=== PATIENT | female | born 1980 | race Caucasian/White ===

== ENCOUNTER 2017-04-13 11:41 | Inpatient (IN) | payer BC ==
[~2017-04-13] VITALS: Ht 167.6 cm; Wt 69.9 kg
[2017-04-13] MEDS ORDERED: TRAZODONE HCL150 MG ORAL (11:54)
[2017-04-13] MEDS ORDERED: Trintellix (11:54)
[2017-04-13] MEDS ORDERED: SINGULAIR10 MG ORAL (11:54)
[2017-04-13 12:44] VITALS: BP 119/80
[2017-04-13] MEDS ORDERED: Pseudoephedrine 30mg tab ORAL ONE (13:45)
[2017-04-13 13:47] LABS: BASOPHILS % (AUTO) 1.2 % (0.0-2.0); EOSINOPHILS % (AUTO) 0.8 % (0.0-3.0); MEAN CORPUSCULAR HEMOGLOBIN 29.5 PG (27.0-31.0); MEAN CORPUSCULAR HGB CONC 32.2 G/DL (32.0-36.0); MEAN CORPUSCULAR VOLUME 91 FL (80-99); MEAN PLATELET VOLUME 6.1 FL (6.5-10.1); MONOCYTES % (AUTO) 8.1 % (1.0-10.0); NEUTROPHILS % (AUTO) 66.9 % (45.0-75.0); PLATELET COUNT 313 K/UL (150-450); RED BLOOD COUNT 5.11 M/UL (4.20-5.40); RED CELL DISTRIBUTION WIDTH 12.9 % (11.6-14.8); WHITE BLOOD COUNT 11.1 K/UL (4.8-10.8)
[2017-04-13 13:56] LABS: PROTHROMBIN TIME 10.3 SEC (9.30-11.50)
[2017-04-13] MEDS ORDERED: Morphine Sulfate 4mg/ml Inj IVP PRN ×2 (14:00→15:00)
[2017-04-13] MEDS ORDERED: ceFAZolin 1gm/50ml Premix 50 ML IVPB SCH (14:00)
[2017-04-13 14:08] LABS: ALANINE AMINOTRANSFERASE 22 U/L (3-33); ALBUMIN/GLOBULIN RATIO 1.4 (1.0-2.7); ANION GAP 15 (5-15); ASPARTATE AMINO TRANSFERASE 15 U/L (5-40); CALCIUM 9.6 mg/dL (8.6-10.2); CARBON DIOXIDE 24 mEQ/L (20-30); CHLORIDE 103 mEQ/L (98-107); CREATININE 0.8 mg/dL (0.5-0.9); GLOMERULAR FILTRATION RATE > 60 mL/min (>60); HEMOLYSIS 49; POTASSIUM 3.8 mEQ/L (3.4-4.9); SODIUM 142 mEQ/L (135-145); TOTAL PROTEIN 7.7 g/dL (6.6-8.7)
--- NOTE | 2017-04-13 14:22 | Emergency Room Report ---
History of Present Illness General Chief Complaint: Skin Rash/Abscess Source: Patient (Ashley Oscar) Present Illness HPI 36 YO Female presents to the ED c/o pain, swelling, and erythema of the groin area with multiple abscesses noted. bilaterally total of 4 and one on the posterior right thigh. Denies N/V/F/C, denies rashes or lesions elsewhere, denies pmhx. Denies CP, Palpitations, LOC, AMS, dizziness, Changes in Vision, Sensation, paresthesias, or a sudden severe headache. (Ashley Oscar) Allergies: Coded Allergies: RAGWEED POLLEN (Verified Allergy, Unknown, 04/13/17) Patient History Past Medical History: see triage record Past Surgical History: none Pertinent Family History: none Last Menstrual Period: Six months ago "Maria Isabel IUD" Now: No Reviewed Nursing Documentation: PSxH: Agreed (Ashley Oscar) Nursing Documentation-PMH Past Medical History: No Stated History History Of Psychiatric Problem: Yes - depression (one year) (Ashley Oscar) Review of Systems All Other Systems: negative except mentioned in HPI (Ashley Oscar) Physical Exam Vital Signs Date Time Temp Pulse Resp B/P Pulse Ox O2 Delivery O2 Flow Rate FiO2 04/13/17 11:47 98.1 97 16 119/80 95 Room Air Sp02 EP Interpretation: reviewed, normal General Appearance: no apparent distress, alert, GCS 15, non-toxic Head: normocephalic, atraumatic Eyes: bilateral eye PERRL, bilateral eye normal inspection ENT: hearing grossly normal, normal pharynx, no angioedema, normal voice Neck: full range of motion, supple/symm/no masses Respiratory: lungs clear, normal breath sounds, speaking full sentences Cardiovascular #1: regular rate, rhythm, no edema Rectal: deferred Musculoskeletal: back normal, gait/station normal, normal range of motion, non- tender Neurologic: alert, oriented x3, responsive, motor strength/tone normal, sensory intact, speech normal Psychiatric: judgement/insight normal, memory normal, mood/affect normal Skin: normal color, no rash, warm/dry, well hydrated, other - localized hydradenitis Suppurativa requiring direct admission for surgical or IV abx management. Lymphatic: no adenopathy (Ashley Oscar) Medical Decision Making PA Attestation Dr. Barreto is my supervising Physician whom patient management has been discussed with. (Ashley Oscar) Diagnostic Impression: Primary Impression: Hidradenitis suppurativa ER Course Pt. presents to the ED c/o pain, swelling, and erythema of the groin area with multiple abscesses noted. bilaterally total of 4 and one on the posterior right thigh. Denies N/V/F/C, Ddx considered but are not limited to cellulitis, hydradenitis Suppurativa, fracture, d/L, gout, abscess Vital signs: are WNL, pt. is afebrile H&PE are most consistent with localized hydradenitis Suppurativa requiring direct admission for surgical or IV abx management. ORDERS: -Gen. preop lab work: CBC, CMP, PT/PTT: unremarkable other than mildly elevated WBC's of 11.1 - UA: Unremarkable - Urine HCG: Negative ED INTERVENTIONS: -1 gram Ancef. DISPOSITION: at this time pt. will be admitted to Dr. Cortez for hydradenitis Suppurativa. Dr. Cortez agreed to admit the pt. and to continue pt. care management. Labs Test 04/13/17 13:00 04/13/17 14:00 04/13/17 14:50 White Blood Count 11.1 K/UL (4.8-10.8) Red Blood Count 5.11 M/UL (4.20-5.40) Hemoglobin 15.1 G/DL (12.0-16.0) Hematocrit 46.8 % (37.0-47.0) Mean Corpuscular Volume 91 FL (80-99) Mean Corpuscular Hemoglobin 29.5 PG (27.0-31.0) Mean Corpuscular Hemoglobin Concent 32.2 G/DL (32.0-36.0) Red Cell Distribution Width 12.9 % (11.6-14.8) Platelet Count 313 K/UL (150-450) Mean Platelet Volume 6.1 FL (6.5-10.1) Neutrophils (%) (Auto) 66.9 % (45.0-75.0) Lymphocytes (%) (Auto) 23.0 % (20.0-45.0) Monocytes (%) (Auto) 8.1 % (1.0-10.0) Eosinophils (%) (Auto) 0.8 % (0.0-3.0) Basophils (%) (Auto) 1.2 % (0.0-2.0) Prothrombin Time 10.3 SEC (9.30-11.50) Prothromb Time International Ratio 1.0 (0.9-1.1) Activated Partial Thromboplast Time 24 SEC (23-33) Sodium Level 142 mEQ/L (135-145) Potassium Level 3.8 mEQ/L (3.4-4.9) Chloride Level 103 mEQ/L (98-107) Carbon Dioxide Level 24 mEQ/L (20-30) Anion Gap 15 (5-15) Blood Urea Nitrogen 13 mg/dL (7-23) Creatinine 0.8 mg/dL (0.5-0.9) Estimat Glomerular Filtration Rate > 60 mL/min (>60) Glucose Level 100 mg/dL (74-106) Calcium Level 9.6 mg/dL (8.6-10.2) Total Bilirubin 1.9 mg/dL (0.0-1.2) Direct Bilirubin 0.2 mg/dL (0.1-0.3) Aspartate Amino Transf (AST/SGOT) 15 U/L (5-40) Alanine Aminotransferase (ALT/SGPT) 22 U/L (3-33) Alkaline Phosphatase 76 U/L (35-104) Total Protein 7.7 g/dL (6.6-8.7) Albumin 4.5 g/dL (3.5-5.2) Globulin 3.2 g/dL Albumin/Globulin Ratio 1.4 (1.0-2.7) Lactic Acid Level 1.30 mmol/L (0.66-2.22) Urine Color Yellow Urine Appearance Clear Urine pH 5 (4.5-8.0) Urine Specific [place] 1.020 (1.005-1.035) Urine Protein Negative (NEGATIVE) Urine Glucose (UA) Negative (NEGATIVE) Urine Ketones 2+ (NEGATIVE) Urine Occult Blood Negative (NEGATIVE) Urine Nitrite Negative (NEGATIVE) Urine Bilirubin Negative (NEGATIVE) Urine Urobilinogen Normal MG/DL (0.0-1.0) Urine Leukocyte Esterase 1+ (NEGATIVE) Urine RBC 0-2 /HPF (0 - 2) Urine WBC 2-4 /HPF (0 - 2) Urine Squamous Epithelial Cells Few /LPF (NONE/OCC) Urine Bacteria Few /HPF (NONE) Urine HCG, Qualitative Negative (Ashley Oscar) ER Course I agree with the above assessment. Patient will be admitted. (Martínez Barreto M.D.) Last Vital Signs Date Time Temp Pulse Resp B/P Pulse Ox O2 Delivery O2 Flow Rate FiO2 04/13/17 12:44 98.1 97 16 119/80 95 Room Air (Ashley Oscar) Disposition: ADMITTED INPATIENT Condition: Serious Referrals: NOT CHOSEN IPA/,REFERRING (PCP) Ashley Oscar Apr 13, 2017 14:22 Martínez Barreto M.D. Apr 16, 2017 08:01
[2017-04-13 14:26] LABS: BILIRUBIN,DIRECT 0.2 mg/dL (0.1-0.3)
[2017-04-13 14:30] VITALS: BP 120/74
[2017-04-13] MEDS ORDERED: Milk of Magnesia 30ml Ud ORAL PRN (15:00)
[2017-04-13] MEDS ORDERED: Morphine Sulfate 2mg/ml Inj IVP PRN (15:00)
[2017-04-13] MEDS ORDERED: Miralax 17gm pkt ORAL PRN (15:00)
[2017-04-13] MEDS ORDERED: Mylanta II UD 30ml ORAL PRN (15:00)
--- NOTE | 2017-04-13 15:03 | History and Physical ---
History of Present Illness General Date patient seen: Apr 13, 2017 Time patient seen: 14:54 Reason for Hospitalization: Skin Rash/Abscess Present Illness HPI 36 y/o female with hx of hidradenitis suppurative in the groin area. Pt has had multiple surgeries before but has not had surgery for her hidradenitis. She states she gets "flares" of her hidradenitis every 2-3 months. She states she is overall doing "better" however lesions will not go away and outpt therapy has not been successful in treating the lesions. Denies any fevers/chills. She states she has occasional pain, redness, swelling in the region. pt was seen by a surgeon in the office, and sent to the ED to be evaluated for possible admission for an abscess. Allergies: Coded Allergies: RAGWEED POLLEN (Verified Allergy, Unknown, 04/13/17) Medication History Scheduled Montelukast Sodium* (Singulair*), 10 MG ORAL DAILY, (Reported) Trazodone* (Trazodone*), 50 MG ORAL BEDTIME, (Reported) Miscellaneous Medications [Trintellix], (Reported) Patient History History Provided By: Patient Healthcare decision maker Resuscitation status Full Code Advanced Directive on File Past Medical/Surgical History Past Medical/Surgical History: (1) Hidradenitis suppurativa Family History Family History: Patient reports no known family medical history. Social History Social History: (1) No significant social history Review of Systems ROS Narrative CONSTITUTIONAL: No weight loss, fever, chills, weakness or fatigue. HEENT: Eyes: No visual loss, blurred vision, double vision or yellow sclerae. Ears, Nose, Throat: No hearing loss, sneezing, congestion, runny nose or sore throat. SKIN: No rash or itching. CARDIOVASCULAR: No chest pain, chest pressure or chest discomfort. No palpitations or edema. RESPIRATORY: No shortness of breath, cough or sputum. GASTROINTESTINAL: No anorexia, nausea, vomiting or diarrhea. No abdominal pain or blood. NEUROLOGICAL: No headache, dizziness, syncope, paralysis, ataxia, numbness or tingling in the extremities. No change in bowel or bladder control. MUSCULOSKELETAL: No muscle, back pain, joint pain or stiffness. HEMATOLOGIC: No anemia, bleeding or bruising. LYMPHATICS: No enlarged nodes. No history of splenectomy. PSYCHIATRIC: No history of depression or anxiety. ENDOCRINOLOGIC: No reports of sweating, cold or heat intolerance. No polyuria or polydipsia. ALLERGIES: No history of asthma, hives, eczema or rhinitis. Physical Exam Physical Exam Narrative General: alert, cooperative, no distress, appears stated age Head: normocephalic, without obvious abnormality, atraumatic Eyes: conjunctivae/corneas clear. PERRL, EOM's intact Throat: lips, mucosa, and tongue normal. MMM Neck: supple, symmetrical, trachea midline, and no JVD Lungs: clear to auscultation bilaterally Heart: regular rate and rhythm, S1, S2 normal, no murmur, click, rub or gallop Abdomen: soft, non-tender, non-distended, bowel sounds normal; no masses or organomegaly Extremities: multiple erythematous lesions around perineal area, +redness, mild tenderness, +rubor, no fluctuance, no induration Pulses: 2+ and symmetric Skin: skin color, texture, turgor normal; no rashes or lesions Neurologic: grossly normal, no focal deficits Last 24 Hour Vital Signs Date Time Temp Pulse Resp B/P Pulse Ox O2 Delivery O2 Flow Rate FiO2 04/13/17 12:44 98.1 97 16 119/80 95 Room Air 04/13/17 11:47 98.1 97 16 119/80 95 Room Air Laboratory Tests Test 04/13/17 13:00 04/13/17 14:00 White Blood Count 11.1 K/UL (4.8-10.8) H Red Blood Count 5.11 M/UL (4.20-5.40) Hemoglobin 15.1 G/DL (12.0-16.0) Hematocrit 46.8 % (37.0-47.0) Mean Corpuscular Volume 91 FL (80-99) Mean Corpuscular Hemoglobin 29.5 PG (27.0-31.0) Mean Corpuscular Hemoglobin Concent 32.2 G/DL (32.0-36.0) Red Cell Distribution Width 12.9 % (11.6-14.8) Platelet Count 313 K/UL (150-450) Mean Platelet Volume 6.1 FL (6.5-10.1) L Neutrophils (%) (Auto) 66.9 % (45.0-75.0) Lymphocytes (%) (Auto) 23.0 % (20.0-45.0) Monocytes (%) (Auto) 8.1 % (1.0-10.0) Eosinophils (%) (Auto) 0.8 % (0.0-3.0) Basophils (%) (Auto) 1.2 % (0.0-2.0) Prothrombin Time 10.3 SEC (9.30-11.50) Prothromb Time International Ratio 1.0 (0.9-1.1) Activated Partial Thromboplast Time 24 SEC (23-33) Sodium Level 142 mEQ/L (135-145) Potassium Level 3.8 mEQ/L (3.4-4.9) Chloride Level 103 mEQ/L (98-107) Carbon Dioxide Level 24 mEQ/L (20-30) Anion Gap 15 (5-15) Blood Urea Nitrogen 13 mg/dL (7-23) Creatinine 0.8 mg/dL (0.5-0.9) Estimat Glomerular Filtration Rate > 60 mL/min (>60) Glucose Level 100 mg/dL (74-106) Calcium Level 9.6 mg/dL (8.6-10.2) Total Bilirubin 1.9 mg/dL (0.0-1.2) H Direct Bilirubin 0.2 mg/dL (0.1-0.3) Aspartate Amino Transf (AST/SGOT) 15 U/L (5-40) Alanine Aminotransferase (ALT/SGPT) 22 U/L (3-33) Alkaline Phosphatase 76 U/L (35-104) Total Protein 7.7 g/dL (6.6-8.7) Albumin 4.5 g/dL (3.5-5.2) Globulin 3.2 g/dL Albumin/Globulin Ratio 1.4 (1.0-2.7) Lactic Acid Level 1.30 mmol/L (0.66-2.22) Height (Feet): 5 Height (Inches): 7.00 Weight (Pounds): 150 Medications Current Medications Medications (Trade) Dose Ordered Sig/Momo Route PRN Reason Start Time Stop Time Status Last Admin Dose Admin Acetaminophen (Tylenol) 650 mg Q4H PRN ORAL Mild Pain (Pain Scale 1-3) 04/13/17 14:00 05/13/17 13:59 UNV Cefazolin Sodium (Ancef 1gm/50ml premix) 50 ml @ 100 mls/hr Q8HR IVPB 04/13/17 14:00 04/20/17 13:59 UNV Dextrose STAT PRN IV Hypoglycemia 04/13/17 14:00 05/13/17 13:59 UNV Heparin Sodium (Porcine) (Heparin 5000 units/ml) 5,000 units EVERY 12 HOURS SUBQ 04/14/17 09:00 05/14/17 08:59 UNV Morphine Sulfate (Morphine Sulfate) 4 mg Q6HR PRN IVP Severe Pain (Pain Scale 7-10) 04/13/17 14:00 04/20/17 13:59 UNV Ondansetron HCl (Zofran) 4 mg Q6H PRN IVP Nausea & Vomiting 04/13/17 14:00 05/13/17 13:59 UNV Sodium Chloride (Sodium Chloride 1000ml bag) 1,000 ml @ 100 mls/hr Q10H IVLG 04/13/17 14:59 05/13/17 14:58 UNV Assessment/Plan Problem List: (1) Perineal abscess Assessment & Plan: Admit to inpatient, r/o [place] perineal abscess IV abx Wound care Supp care Pain control f/u cultures Surgical consultation ICD Codes: L02.215 - Cutaneous abscess of perineum SNOMED: [id number] TIM RICKS Apr 13, 2017 15:03
[2017-04-13 15:46] LABS: APPEARANCE,URINE CLEAR; KETONES,URINE 2+ (NEGATIVE); LEUKOCYTE ESTERASE ,URINE 1+ (NEGATIVE); NITRITE,URINE NEGATIVE (NEGATIVE); PH,URINE 5 (4.5-8.0); PROTEIN,URINE NEGATIVE (NEGATIVE); UROBILINOGEN,URINE NORMAL MG/DL (0.0-1.0)
[2017-04-13 16:03] LABS: BACTERIA,URINE FEW /HPF; RBC,URINE 0-2 /HPF (0 - 2); SQUAMOUS EPITHELIAL CELL,UR FEW /LPF (NONE/OCC)
[2017-04-13 16:13] VITALS: BP 110/65
[2017-04-13] MEDS: D5NS 1,000 ML IV SCH (16:13)
[2017-04-13] MEDS: Montelukast 10mg tablet ORAL SCH (16:51)
[2017-04-13 20:00] VITALS: BP 109/67
[2017-04-13] MEDS: ceFAZolin 1gm in D5W 55ml IVP SCH (21:27)
[2017-04-13] MEDS: Docusate 100mg cap ORAL SCH (21:27)
[2017-04-13] MEDS: TraZODone 50mg tab ORAL SCH (21:27)
[2017-04-13] MEDS: LORazepam Inj 2mg/ml 1ml IV PRN (21:27)
[2017-04-14] VITALS (12 sets, daily range): BP systolic 98–129; BP diastolic 57–80
[2017-04-14] MEDS: ceFAZolin 1gm in D5W 55ml IVP SCH ×3 (05:44→22:02)
[2017-04-14 07:40] LABS: BASOPHILS % (AUTO) 0.8 % (0.0-2.0); EOSINOPHILS % (AUTO) 1.8 % (0.0-3.0); LYMPHOCYTES % (AUTO) 31.2 % (20.0-45.0); MEAN CORPUSCULAR HEMOGLOBIN 30.1 PG (27.0-31.0); MEAN CORPUSCULAR HGB CONC 32.9 G/DL (32.0-36.0); MEAN CORPUSCULAR VOLUME 91 FL (80-99); MEAN PLATELET VOLUME 6.6 FL (6.5-10.1); MONOCYTES % (AUTO) 11.1 % (1.0-10.0); NEUTROPHILS % (AUTO) 55.1 % (45.0-75.0); PLATELET COUNT 289 K/UL (150-450); RED BLOOD COUNT 4.84 M/UL (4.20-5.40); RED CELL DISTRIBUTION WIDTH 12.4 % (11.6-14.8); WHITE BLOOD COUNT 9.3 K/UL (4.8-10.8)
[2017-04-14 08:00] LABS: ANION GAP 9 (5-15); CALCIUM 8.9 mg/dL (8.6-10.2); CARBON DIOXIDE 27 mEQ/L (20-30); CHLORIDE 104 mEQ/L (98-107); CREATININE 0.8 mg/dL (0.5-0.9); GLOMERULAR FILTRATION RATE > 60 mL/min (>60); HEMOLYSIS 9; POTASSIUM 3.8 mEQ/L (3.4-4.9); SODIUM 140 mEQ/L (135-145)
[2017-04-14] MEDS ORDERED: Heparin 5000 units/ml inj SUBQ SCH (09:00)
[2017-04-14] MEDS: Docusate 100mg cap ORAL SCH ×2 (09:00→20:17)
[2017-04-14] MEDS ORDERED: Lidocaine 1% 10mg/ml/Epi 0.005mg/ml 30ml vial INJ ONE (09:27)
[2017-04-14] MEDS ORDERED: Bacitracin 50000 Units Vial ONE (09:27)
--- NOTE | 2017-04-14 09:36 | Anethesia Preoperative Eval ---
Anesthesia Pre-op PMH/ROS General Date of Evaluation: Apr 14, 2017 Anesthesiologist: Harley ASA Score: ASA 2 Mallampati Score Class I : Soft palate, uvula, fauces, pillars visible Class II: Soft palate, uvula, fauces visible Class III: Soft palate, base of uvula visible Class IV: Only hard plate visible Mallampati Classification: Class I Surgeon: Natalie Diagnosis: Bilateral groin hidradenitis suppurativa Surgical Procedure: Bilatleral groin wound I&D and closure Anesthesia History: none Family History: no anesthesia problems Allergies: Coded Allergies: RAGWEED POLLEN (Verified Allergy, Unknown, 04/13/17) Medications: see eMAR Past Medical History Cardiovascular: Denies: CAD, HTN, LA, arrhythmia, other, valve dz Pulmonary: Denies: COPD, ARJUN, asthma, other Gastrointestinal/Genitourinary: Denies: CRI, ESRD, GERD, other Neurologic/Psychiatric: Reports: depression/anxiety, Denies: CVA, TIA, dementia, other Endocrine: Denies: DM, hypothyroidism, other, steroids HEENT: Denies: [place] (L), [place] (R), cataract (L), cataract (R), glaucoma, other Hematology/Immune: Denies: DVT, anemia, bleeding disorder, other Musculoskeletal/Integumentary: Reports: other - HS, Denies: DDD, DJD, OA, RA, edema PSxH Narrative: Bialteral breeast augmentation Anesthesia Pre-op Phys. Exam Physician Exam Last Vital Signs Date Time Temp Pulse Resp B/P Pulse Ox O2 Delivery O2 Flow Rate FiO2 04/14/17 08:13 97.7 76 20 115/72 98 Room Air Constitutional: NAD Cardiovascular: RRR Respiratory: CTA Airway Exam Mallampati Score: Class I MO: full ROM: full Teeth: intact Anesthesia Pre-op A/P Labs Hematology Test 04/13/17 13:00 04/14/17 07:25 White Blood Count 11.1 K/UL (4.8-10.8) H 9.3 K/UL (4.8-10.8) Red Blood Count 5.11 M/UL (4.20-5.40) 4.84 M/UL (4.20-5.40) Hemoglobin 15.1 G/DL (12.0-16.0) 14.6 G/DL (12.0-16.0) Hematocrit 46.8 % (37.0-47.0) 44.3 % (37.0-47.0) Mean Corpuscular Volume 91 FL (80-99) 91 FL (80-99) Mean Corpuscular Hemoglobin 29.5 PG (27.0-31.0) 30.1 PG (27.0-31.0) Mean Corpuscular Hemoglobin Concent 32.2 G/DL (32.0-36.0) 32.9 G/DL (32.0-36.0) Red Cell Distribution Width 12.9 % (11.6-14.8) 12.4 % (11.6-14.8) Platelet Count 313 K/UL (150-450) 289 K/UL (150-450) Mean Platelet Volume 6.1 FL (6.5-10.1) L 6.6 FL (6.5-10.1) Neutrophils (%) (Auto) 66.9 % (45.0-75.0) 55.1 % (45.0-75.0) Lymphocytes (%) (Auto) 23.0 % (20.0-45.0) 31.2 % (20.0-45.0) Monocytes (%) (Auto) 8.1 % (1.0-10.0) 11.1 % (1.0-10.0) H Eosinophils (%) (Auto) 0.8 % (0.0-3.0) 1.8 % (0.0-3.0) Basophils (%) (Auto) 1.2 % (0.0-2.0) 0.8 % (0.0-2.0) Coagulation Test 04/13/17 13:00 Prothrombin Time 10.3 SEC (9.30-11.50) Prothromb Time International Ratio 1.0 (0.9-1.1) Activated Partial Thromboplast Time 24 SEC (23-33) Chemistry Test 04/13/17 13:00 04/13/17 14:00 04/14/17 07:25 Sodium Level 142 mEQ/L (135-145) 140 mEQ/L (135-145) Potassium Level 3.8 mEQ/L (3.4-4.9) 3.8 mEQ/L (3.4-4.9) Chloride Level 103 mEQ/L (98-107) 104 mEQ/L (98-107) Carbon Dioxide Level 24 mEQ/L (20-30) 27 mEQ/L (20-30) Anion Gap 15 (5-15) 9 (5-15) Blood Urea Nitrogen 13 mg/dL (7-23) 12 mg/dL (7-23) Creatinine 0.8 mg/dL (0.5-0.9) 0.8 mg/dL (0.5-0.9) Estimat Glomerular Filtration Rate > 60 mL/min (>60) > 60 mL/min (>60) Glucose Level 100 mg/dL (74-106) 99 mg/dL (74-106) Calcium Level 9.6 mg/dL (8.6-10.2) 8.9 mg/dL (8.6-10.2) Total Bilirubin 1.9 mg/dL (0.0-1.2) H Direct Bilirubin 0.2 mg/dL (0.1-0.3) Aspartate Amino Transf (AST/SGOT) 15 U/L (5-40) Alanine Aminotransferase (ALT/SGPT) 22 U/L (3-33) Alkaline Phosphatase 76 U/L (35-104) Total Protein 7.7 g/dL (6.6-8.7) Albumin 4.5 g/dL (3.5-5.2) Globulin 3.2 g/dL Albumin/Globulin Ratio 1.4 (1.0-2.7) Lactic Acid Level 1.30 mmol/L (0.66-2.22) Urine Test Test 04/13/17 14:50 Urine HCG, Qualitative Negative Studies Pre-op Studies: EKG - sr Risk Assessment & Plan Assessment: ASA II Plan: GA Status Change Before Surgery: No Pre-Antibiotics Drug: Anceg 1g Given Within 1 Hr of Incision: Yes Time Given: 09:55 MARA ORDONEZ M.D. Apr 14, 2017 09:36
[2017-04-14] MEDS ORDERED: Propofol 10mg/ml 20ml IV ONE (09:45)
[2017-04-14] MEDS ORDERED: LR 1000ml ONE (09:45)
[2017-04-14] MEDS ORDERED: Midazolam 2mg/2ml Inj ONE (09:45)
[2017-04-14] MEDS ORDERED: Sterile Water Irrig 1000ml IRRIG ONE (09:45)
[2017-04-14] MEDS ORDERED: NS Irrig 1000ml ONE (09:45)
[2017-04-14] MEDS ORDERED: Metoclopramide 10mg/2ml Inj ONE (09:45)
[2017-04-14] MEDS ORDERED: Dexamethasone 4mg/ml vial ONE (09:45)
[2017-04-14] MEDS ORDERED: fentaNYL 250mcg/5ml ONE (09:45)
[2017-04-14] MEDS ORDERED: Lidocaine 1% MPF 10mg/ml 5ml ONE (09:45)
--- NOTE | 2017-04-14 09:49 | Pre-Procedure Note/Attestation ---
Pre-Procedure Note/Attestation Complete Prior to Procedure Planned Procedure: bilateral Procedure Narrative: Bilateral groin tissue excision and closure Attestation I attest that I discussed the nature of the procedure; its benefits; risks and complications; and alternatives (and the risks and benefits of such alternatives ), prior to the procedure, with the patient (or the patient's legal community representative). I attest that, if there was a reasonable possibility of needing a blood transfusion, the patient (or the patient's legal community representative) was given the [facility] standardized written summary, pursuant to the [place] Timothy Blood Safety Act ([place] Health and Safety Code # 1645, as amended). I attest that I re-evaluated the patient just prior to the surgery and that there has been no change in the patient's H&P, except as documented below: OZZY BELTRÁN Apr 14, 2017 09:49
[2017-04-14] MEDS ORDERED: LR 1000ml 1,000 ML IVLG SCH (10:09)
--- NOTE | 2017-04-14 10:10 | Immediate Post-Op Evaluation ---
Immediate Post-Op Evalulation Immediate Post-Op Evalulation Procedure: Bilateral groin wound I&D amd closure Date of Evaluation: Apr 14, 2017 Time of Evaluation: 11:31 IV Fluids: 900 Blood Products: 0 Estimated Blood Loss: 25 Urinary Output: 150 Blood Pressure Systolic: 119 Blood Pressure Diastolic: 70 Pulse Rate: 67 Respiratory Rate: 16 O2 Sat by Pulse Oximetry: 100 Temperature (Fahrenheit): 97.2 Pain Score (1-10): 0 Nausea: No Vomiting: No Complications 0 Patient Status: awake, reacts, patent, none Hydration Status: adequate Drug: Ancef 1g Given Within 1 Hr of Incision: Yes Time Given: 09:55 MARA ORDONEZ M.D. Apr 14, 2017 10:10
[2017-04-14] MEDS ORDERED: Midazolam 2mg/2ml Inj IVP PRN (10:15)
[2017-04-14] MEDS ORDERED: Metoclopramide 10mg/2ml Inj IVP PRN (10:15)
[2017-04-14] MEDS ORDERED: Hydromorphone 0.5mg/0.5ml inj IVP PRN ×2 (10:15→11:15)
[2017-04-14] MEDS ORDERED: DiphenhydrAMINE 50mg/ml Inj IVP PRN ×2 (10:15→11:15)
[2017-04-14] MEDS ORDERED: LORazepam Inj 2mg/ml 1ml IV PRN (10:15)
--- NOTE | 2017-04-14 11:01 | Operative Note - PDOC ---
Operative Note Operative Note Procedure: Bilateral groin tissue excision and closure Post-op Diagnosis: same as pre-op Surgeon: Natalie Installment Loan Collector: Eleni Specimen: none Complications: none Condition: stable Estimated Blood Loss: minimal Drains: ULISSES Implant(s) used?: No OZZY BELTRÁN Apr 14, 2017 11:01
[2017-04-14] MEDS ORDERED: HYDROmorphone 1mg/ml Carpuject IVP PRN (11:15)
[2017-04-14] MEDS: D5NS 1,000 ML IV SCH ×2 (11:30→17:48)
[2017-04-14] MEDS: fentaNYL 100 mcg/2 mL IV PRN ×4 (11:45→12:10)
[2017-04-14] MEDS: LORazepam Inj 2mg/ml 1ml IV PRN ×2 (13:51→22:02)
--- NOTE | 2017-04-14 15:19 | General Progress Note ---
Assessment/Plan Problem List: (1) Perineal abscess Assessment & Plan: s/p Bilateral groin tissue excision and closure Cont IV abx Wound care Supp care Pain control f/u cultures Wound care per Surgery ICD Codes: L02.215 - Cutaneous abscess of perineum SNOMED: 94924243 Subjective Date patient seen: Apr 14, 2017 Time patient seen: 15:18 ROS Limited/Unobtainable: No Allergies: Coded Allergies: RAGWEED POLLEN (Verified Allergy, Unknown, 04/13/17) Subjective s/p Bilateral groin tissue excision and closure earlier today, no periop or postop complications. No chest pain or dyspnea. Postop pain well controlled, no n/v. Objective Last 24 Hour Vital Signs Date Time Temp Pulse Resp B/P Pulse Ox O2 Delivery O2 Flow Rate FiO2 04/14/17 12:30 97.5 72 17 129/79 96 Room Air 04/14/17 12:20 97.4 04/14/17 12:15 69 14 120/77 98 Room Air 04/14/17 12:00 75 17 124/80 96 Room Air 04/14/17 11:50 70 15 125/67 98 Room Air 04/14/17 11:45 73 16 114/73 100 Simple Mask 6.0 04/14/17 11:30 65 16 115/71 100 Simple Mask 6.0 04/14/17 11:29 67 16 100 04/14/17 11:26 97.2 67 16 119/70 100 Simple Mask 6.0 04/14/17 08:13 97.7 76 20 115/72 98 Room Air 04/14/17 04:00 96.4 62 19 103/72 100 Room Air 04/14/17 00:00 97.9 65 18 99/57 97 Room Air 04/13/17 20:00 98.1 82 19 109/67 97 Room Air 04/13/17 16:13 97.7 68 18 110/65 99 Room Air Intake and Output 04/13/17 04/14/17 19:00 07:00 Intake Total 660 ml 600 ml Balance 660 ml 600 ml Intake Oral 460 ml IV Total 200 ml 600 ml # Voids 3 Laboratory Tests 04/14/17 07:25: White Blood Count 9.3, Red Blood Count 4.84, Hemoglobin 14.6, Hematocrit 44.3, Mean Corpuscular Volume 91, Mean Corpuscular Hemoglobin 30.1, Mean Corpuscular Hemoglobin Concent 32.9, Red Cell Distribution Width 12.4, Platelet Count 289, Mean Platelet Volume 6.6, Neutrophils (%) (Auto) 55.1, Lymphocytes (%) (Auto) 31.2, Monocytes (%) (Auto) 11.1H, Eosinophils (%) (Auto) 1.8, Basophils (%) ( Auto) 0.8, Sodium Level 140, Potassium Level 3.8, Chloride Level 104, Carbon Dioxide Level 27, Anion Gap 9, Blood Urea Nitrogen 12, Creatinine 0.8, Estimat Glomerular Filtration Rate > 60, Glucose Level 99, Calcium Level 8.9 Height (Feet): 5 Height (Inches): 6.00 Weight (Pounds): 154 Objective General: alert, cooperative, no distress, appears stated age Head: normocephalic, without obvious abnormality, atraumatic Eyes: conjunctivae/corneas clear. PERRL, EOM's intact Throat: lips, mucosa, and tongue normal. MMM Neck: supple, symmetrical, trachea midline, and no JVD Lungs: clear to auscultation bilaterally Heart: regular rate and rhythm, S1, S2 normal, no murmur, click, rub or gallop Abdomen: soft, non-tender, non-distended, bowel sounds normal; no masses or organomegaly Extremities: groin dressings c/d/i Pulses: 2+ and symmetric Skin: skin color, texture, turgor normal; no rashes or lesions Neurologic: grossly normal, no focal deficits TIM RICKS Apr 14, 2017 15:19
[2017-04-14] MEDS: Montelukast 10mg tablet ORAL SCH ×2 (16:30→17:54)
[2017-04-14] MEDS: TraZODone 50mg tab ORAL SCH (20:12)
[2017-04-14] MEDS: Norco 10mg/325mg tab ORAL PRN (20:13)
[2017-04-14] MEDS: Heparin 5000 units/ml inj SUBQ SCH (20:15)
--- NOTE | 2017-04-14 21:40 | Consultation ---
DATE OF CONSULTATION: 04/14/2017 HISTORY OF PRESENT ILLNESS: This is a 36-year-old female admitted for bilateral groin abscesses. She was seen by Dr. Lucero Cotrez, admitted, and started on IV antibiotics. On evaluation by me, I felt that she was an appropriate candidate for surgical excision and debridement with reconstruction. PAST MEDICAL HISTORY: Significant for hidradenitis. PAST SURGICAL HISTORY: Includes . MEDICATIONS: Antibiotics. ALLERGIES: Include ragweed and pollen. PHYSICAL EXAMINATION: GENERAL: The patient is alert and oriented. HEART: Regular rhythm. ABDOMEN: Soft, nontender, and nondistended. EXTREMITIES: Examination of the lower extremity and trunk reveals areas of multiple abscesses that are within the groin region as well as the buttock region. ASSESSMENT AND PLAN: This is a 36-year-old female with hidradenitis suppurativa in her groin. She would like to leave the buttock abscesses alone, however, it appears that the groin abscesses are bothering her now, for which, she is going to require debridement and reconstruction. She understands risks and benefits of surgery and agrees to proceed. Alexis Estrada M.D. DR: ALICIA JOB#: [id number] CC:
--- NOTE | 2017-04-14 21:40 | Operative Note - Dictated ---
DATE OF OPERATION: 04/14/2017 PREOPERATIVE DIAGNOSIS: Bilateral groin abscesses/infected tissue. POSTOPERATIVE DIAGNOSIS: Bilateral groin abscesses/infected tissue. PROCEDURES: 1. Radical excision of right groin tissue. 2. Radical excision of left groin tissue. 3. Adjacent tissue transfer closure of right groin wound measuring 40 sq cm. 4. Adjacent tissue transfer closure of left groin wound measuring 50 sq cm. SURGEON: Alexis Estrada M.D. GRINDER MACHINE KNIFE SETTER: Chuck Knowles M.D. ANESTHESIA: General. COMPLICATIONS: None. DISPOSITION: Stable to the recovery room. INDICATIONS FOR SURGERY: This is a 36-year-old female with bilateral groin abscesses significantly associated with hidradenitis. She has been having significant relapse and pain in this region. The patient is a candidate for excisional debridement of tissue with reconstruction. She understands the risks and benefits of surgery and agrees to proceed. DETAILS OF THE OPERATION: The patient was brought to the operating room and laid in lithotomy position on the operating room table. The area was prepped and draped in a sterile and usual fashion. Preoperatively, the areas that needed to be excised were marked with a marking pen in an elliptical type of fashion. We began by injecting total of 5 mL of lidocaine with epinephrine into both groin wounds and then we used a #10 blade to first make the right groin skin incision excising all the way around the markings and electrocautery was then used to radically excise the tissue all the way down to the level of the adductor fascia. In a similar fashion, the contralateral groin wound was approached with a #10 blade and electrocautery was then used to radically excise the tissue all the way down to the level of the adductor fascia. The wounds at this point that were created were 40 sq cm in the right and 50 sq cm in the left and these were not amenable to primary closure. As such, adjacent tissue transfer has to be performed to allow for definitive wound closure. After the wounds were copiously irrigated with pulse lavage and hemostasis was achieved, a medial thigh flap was elevated using electrocautery with proximal and distal incisions made as well as medial groin flap elevated to allow for full mobilization of the tissue and allow for adjacent tissue transfer closure of the wound. In a similar fashion, the contralateral left groin medial thigh flap was elevated by releasing the skin flap from the underlying adductor fascia with proximal and distal incisions made to fully mobilize the flap and similarly on the medial groin aspect, the skin flap was elevated off of the underlying adductor tissue to allow for full mobilization of the flap and the adjacent tissue transfer was completed on both sides and reapproximated tissue flaps using #0 and 2-0 Vicryl sutures for the deep and superficial layer and interrupted 2-0 Prolene was used to close the skin. Dermabond was then applied to the skin. The patient tolerated the procedure well. There were no complications. Alexis Estrada M.D. DR: ALICIA JOB#: [id number] CC:
[2017-04-15] VITALS: BP 101/53
[2017-04-15 04:00] VITALS: BP 100/60
[2017-04-15] MEDS: Norco 10mg/325mg tab ORAL PRN (04:13)
[2017-04-15] MEDS: ceFAZolin 1gm in D5W 55ml IVP SCH ×3 (05:16→22:06)
[2017-04-15 08:00] VITALS: BP 94/51
[2017-04-15] MEDS: Docusate 100mg cap ORAL SCH ×2 (08:56→20:15)
[2017-04-15] MEDS: Heparin 5000 units/ml inj SUBQ SCH ×2 (09:00→20:15)
--- NOTE | 2017-04-15 10:23 | General Progress Note ---
Progress Note Progress Note Pt seen and examined. POD# 1 and doing well. Dressings CDI. Continue IV abx and pain meds. OZZY Cristina MD Apr 15, 2017 10:23
[2017-04-15] MEDS: Norco 5mg/325mg tab ORAL PRN ×2 (11:14→20:11)
[2017-04-15 12:00] VITALS: BP 107/74
--- NOTE | 2017-04-15 13:22 | 48 Hour Post Anesthesia Eval ---
Post Anesthesia Evaluation Procedure: Bilateral groin wound I&D amd closure Date of Evaluation: Apr 15, 2017 Time of Evaluation: 13:21 Blood Pressure Systolic: 110 0: 70 Pulse Rate: 74 Respiratory Rate: 11 Temperature (Fahrenheit): 97 O2 Sat by Pulse Oximetry: 100 Nausea: No Vomiting: No Hydration Status: adequate Mental Status/LOC: patient returned to baseline Follow-up care needed: N/A Bradley Boland MD Apr 15, 2017 13:22
[2017-04-15 16:00] VITALS: BP 115/56
[2017-04-15] MEDS: Montelukast 10mg tablet ORAL SCH (17:01)
[2017-04-15] MEDS ORDERED: D5NS 1000ml IV ONE (18:09)
--- NOTE | 2017-04-15 18:09 | General Progress Note ---
Assessment/Plan Problem List: (1) Perineal abscess Assessment & Plan: s/p Bilateral groin tissue excision and closure POD#1 Cont IV abx Wound care Supp care Pain control f/u cultures Wound care per Surgery ICD Codes: L02.215 - Cutaneous abscess of perineum SNOMED: 98952066 Subjective Date patient seen: Apr 15, 2017 Time patient seen: 18:08 ROS Limited/Unobtainable: No Allergies: Coded Allergies: RAGWEED POLLEN (Verified Allergy, Unknown, 04/13/17) Subjective s/p Bilateral groin tissue excision and closure POD#1, no periop or postop complications. No chest pain or dyspnea. Postop pain well controlled, no n/v. Objective Last 24 Hour Vital Signs Date Time Temp Pulse Resp B/P Pulse Ox O2 Delivery O2 Flow Rate FiO2 04/15/17 16:00 97.9 85 19 115/56 97 Room Air 04/15/17 13:22 74 11 100 04/15/17 12:00 97.7 78 19 107/74 98 Room Air 04/15/17 08:00 97.9 94 19 94/51 97 Room Air 04/15/17 04:00 97.7 66 18 100/60 96 Room Air 04/15/17 00:00 97.2 61 16 101/53 95 Room Air 04/14/17 20:00 97.7 91 18 108/64 95 Room Air Intake and Output 04/14/17 04/15/17 19:00 07:00 Intake Total 770 ml 860 ml Output Total 604 ml 1014 ml Balance 166 ml -154 ml Intake Oral 420 ml 360 ml IV Total 350 ml 500 ml Output Urine Total 600 ml 1000 ml Drainage Total 4 ml 14 ml # Voids 1 Height (Feet): 5 Height (Inches): 6.00 Weight (Pounds): 154 Objective General: alert, cooperative, no distress, appears stated age Head: normocephalic, without obvious abnormality, atraumatic Eyes: conjunctivae/corneas clear. PERRL, EOM's intact Throat: lips, mucosa, and tongue normal. MMM Neck: supple, symmetrical, trachea midline, and no JVD Lungs: clear to auscultation bilaterally Heart: regular rate and rhythm, S1, S2 normal, no murmur, click, rub or gallop Abdomen: soft, non-tender, non-distended, bowel sounds normal; no masses or organomegaly Extremities: groin dressings c/d/i, +2 drains with serosanguinous fluid Pulses: 2+ and symmetric Skin: skin color, texture, turgor normal; no rashes or lesions Neurologic: grossly normal, no focal deficits TIM RICKS Apr 15, 2017 18:09
[2017-04-15 20:00] VITALS: BP 108/61
[2017-04-15] MEDS: TraZODone 50mg tab ORAL SCH (20:15)
[2017-04-15] MEDS: LORazepam Inj 2mg/ml 1ml IV PRN (22:06)
[2017-04-16] VITALS: BP 103/51
[2017-04-16] MEDS: D5NS 1,000 ML IV SCH ×2 (00:31→20:56)
[2017-04-16 04:00] VITALS: BP 106/58
[2017-04-16] MEDS: ceFAZolin 1gm in D5W 55ml IVP SCH ×3 (05:57→20:56)
[2017-04-16] MEDS: Norco 5mg/325mg tab ORAL PRN ×3 (06:06→20:56)
[2017-04-16 08:00] VITALS: BP 105/64
[2017-04-16] MEDS: Docusate 100mg cap ORAL SCH ×2 (08:56→20:55)
[2017-04-16] MEDS: Heparin 5000 units/ml inj SUBQ SCH ×2 (09:00→21:00)
[2017-04-16 12:00] VITALS: BP 112/72
[2017-04-16 16:00] VITALS: BP 100/45
--- NOTE | 2017-04-16 16:16 | General Progress Note ---
Assessment/Plan Problem List: (1) Perineal abscess Assessment & Plan: s/p Bilateral groin tissue excision and closure POD#2 Cont IV abx Wound care Supp care Pain control f/u cultures Wound care per Surgery ICD Codes: L02.215 - Cutaneous abscess of perineum SNOMED: 98520681 Subjective Date patient seen: Apr 16, 2017 Time patient seen: 16:16 ROS Limited/Unobtainable: No Allergies: Coded Allergies: RAGWEED POLLEN (Verified Allergy, Unknown, 04/13/17) Subjective s/p Bilateral groin tissue excision and closure POD#2, no periop or postop complications. No chest pain or dyspnea. Postop pain well controlled, no n/v. Objective Last 24 Hour Vital Signs Date Time Temp Pulse Resp B/P Pulse Ox O2 Delivery O2 Flow Rate FiO2 04/16/17 14:05 98.1 04/16/17 12:00 98.1 74 16 112/72 99 Room Air 04/16/17 08:00 98.1 64 17 105/64 98 Room Air 04/16/17 04:00 97.4 74 18 106/58 98 Room Air 04/16/17 00:00 97.3 72 18 103/51 99 Room Air 04/15/17 20:00 97.8 80 18 108/61 97 Room Air Intake and Output 04/15/17 04/16/17 19:00 07:00 Intake Total 795 ml Output Total 754 ml 20 ml Balance -754 ml 775 ml Intake Oral 360 ml IV Total 435 ml Output Urine Total 750 ml Drainage Total 4 ml 20 ml # Voids 2 Height (Feet): 5 Height (Inches): 6.00 Weight (Pounds): 154 Objective General: alert, cooperative, no distress, appears stated age Head: normocephalic, without obvious abnormality, atraumatic Eyes: conjunctivae/corneas clear. PERRL, EOM's intact Throat: lips, mucosa, and tongue normal. MMM Neck: supple, symmetrical, trachea midline, and no JVD Lungs: clear to auscultation bilaterally Heart: regular rate and rhythm, S1, S2 normal, no murmur, click, rub or gallop Abdomen: soft, non-tender, non-distended, bowel sounds normal; no masses or organomegaly Extremities: groin dressings c/d/i, +2 drains with serosanguinous fluid Pulses: 2+ and symmetric Skin: skin color, texture, turgor normal; no rashes or lesions Neurologic: grossly normal, no focal deficits TIM RICKS Apr 16, 2017 16:16
[2017-04-16] MEDS: Montelukast 10mg tablet ORAL SCH (16:47)
[2017-04-16] MEDS: PredniSONE 20mg tab ORAL SCH (19:04)
[2017-04-16 20:24] VITALS: BP 119/74
[2017-04-16] MEDS: TraZODone 50mg tab ORAL SCH (20:55)
[2017-04-17 00:03] VITALS: BP 110/68
[2017-04-17 04:30] VITALS: BP 115/70
[2017-04-17] MEDS: ceFAZolin 1gm in D5W 55ml IVP SCH ×3 (05:33→21:21)
[2017-04-17 08:00] VITALS: BP 109/64
[2017-04-17] MEDS: Docusate 100mg cap ORAL SCH ×2 (09:11→21:22)
[2017-04-17] MEDS: PredniSONE 20mg tab ORAL SCH (09:12)
[2017-04-17] MEDS: Heparin 5000 units/ml inj SUBQ SCH ×2 (09:18→21:23)
[2017-04-17 12:00] VITALS: BP 109/66
[2017-04-17] MEDS: Norco 10mg/325mg tab ORAL PRN ×2 (12:32→21:22)
[2017-04-17] MEDS ORDERED: D5NS 1000ml IV ONE (15:07)
[2017-04-17 16:00] VITALS: BP 110/69
--- NOTE | 2017-04-17 16:05 | General Progress Note ---
Assessment/Plan Problem List: (1) Perineal abscess Assessment & Plan: s/p Bilateral groin tissue excision and closure POD#3 Cont IV abx Wound care Supp care Pain control f/u cultures Wound care per Surgery ICD Codes: L02.215 - Cutaneous abscess of perineum SNOMED: [id number] (2) Headaches, cluster Assessment & Plan: Query due to sinusitis Pt has already been seen by ENT, s/p tympanostomy tube placement, CT ears reportedly were normal Will order CT facial sinuses Consider expanding abx coverage to cover sinusitis ICD Codes: G44.009 - Cluster headache syndrome, unspecified, not intractable SNOMED: [id number] Subjective Date patient seen: Apr 17, 2017 Time patient seen: 15:59 ROS Limited/Unobtainable: No Allergies: Coded Allergies: RAGWEED POLLEN (Verified Allergy, Unknown, 04/13/17) Subjective s/p Bilateral groin tissue excision and closure POD#3, no periop or postop complications. No chest pain or dyspnea. Postop pain well controlled, no n/v. Pt c/o ear aches, facial pain, headaches. This has been an ongoing problem for the past 2 months, has seen an ENT physician and kiln firer, s/p tympanostomy tube placement. No complaints of numbness/tingling or decreased ROM in any of her facial muscles. Objective Last 24 Hour Vital Signs Date Time Temp Pulse Resp B/P Pulse Ox O2 Delivery O2 Flow Rate FiO2 04/17/17 13:31 97.7 04/17/17 12:00 98.4 72 16 109/66 99 Room Air 04/17/17 08:00 97.7 69 16 109/64 99 Room Air 04/17/17 04:30 98.1 80 18 115/70 96 Room Air 04/17/17 00:03 98.2 66 17 110/68 98 Room Air 04/16/17 20:24 97.9 73 18 119/74 100 Room Air 04/16/17 16:00 98.2 70 18 100/45 96 Room Air Intake and Output 04/16/17 04/17/17 19:00 07:00 Intake Total 1080 ml 800 ml Output Total 400 ml 33 ml Balance 680 ml 767 ml Intake Oral 500 ml 240 ml IV Total 580 ml 560 ml Output Urine Total 400 ml Drainage Total 33 ml # Voids 1 2 # Bowel Movements 1 1 Height (Feet): 5 Height (Inches): 6.00 Weight (Pounds): 154 Objective General: alert, cooperative, no distress, appears stated age Head: normocephalic, without obvious abnormality, atraumatic Eyes: conjunctivae/corneas clear. PERRL, EOM's intact Throat: lips, mucosa, and tongue normal. MMM Neck: supple, symmetrical, trachea midline, and no JVD Lungs: clear to auscultation bilaterally Heart: regular rate and rhythm, S1, S2 normal, no murmur, click, rub or gallop Abdomen: soft, non-tender, non-distended, bowel sounds normal; no masses or organomegaly Extremities: groin dressings c/d/i, +2 drains with serosanguinous fluid Pulses: 2+ and symmetric Skin: skin color, texture, turgor normal; no rashes or lesions Neurologic: facial sensation entirely symmetric, no deficits to light touch testing, no facial droop or changes in ROM in any of the facial muscles. TIM RICKS Apr 17, 2017 16:05
[2017-04-17] MEDS: Montelukast 10mg tablet ORAL SCH (17:10)
[2017-04-17 20:00] VITALS: BP 115/56
[2017-04-17] MEDS: D5NS 1,000 ML IV SCH (20:22)
[2017-04-17] MEDS: Augmentin 875mg Tab ORAL SCH (21:21)
[2017-04-17] MEDS: TraZODone 50mg tab ORAL SCH (21:21)
[2017-04-17] MEDS: LORazepam Inj 2mg/ml 1ml IV PRN (22:43)
[2017-04-18 04:00] VITALS: BP 109/59
[2017-04-18] MEDS: ceFAZolin 1gm in D5W 55ml IVP SCH (05:26)
[2017-04-18] MEDS: LORazepam Inj 2mg/ml 1ml IV PRN (05:35)
[2017-04-18 08:00] VITALS: BP 118/71
[2017-04-18] MEDS: Augmentin 875mg Tab ORAL SCH (08:41)
[2017-04-18] MEDS: Heparin 5000 units/ml inj SUBQ SCH (08:44)
[2017-04-18] MEDS: Docusate 100mg cap ORAL SCH (08:44)
[2017-04-18] MEDS ORDERED: PredniSONE 20mg tab ORAL SCH (09:00)
--- NOTE | 2017-04-18 11:06 | Discharge Summary ---
Discharge Summary Hospital Course Date of Admission Apr 13, 2017 at 14:28 Date of Discharge Apr 18, 2017 Admitting Diagnosis r/o groin abscess Reason for Hospitalization: as above HPI Araseli Patel is a 36 year old female who was admitted on Apr 13, 2017 at 14:28 for Hidradenitis Suppurativa Consultations Surgery Procedures See Operative Reports Hospital Course 36 y/o female with hx of hidradenitis suppurativa, presented to ED with groin lesions. Seen by Surgery. Started on IV abx empirically for r/o abscess. Taken to OR for debridement, se operative reports. Pt had no periop or postop complications. She did c/o facial pain and ear ahce, ongoing problem for her and was prescribed steroids by an ENT physician in [place] where she lives, unclear diagnosis. Given negative impact on wound healing, steroids were dced after d/w Surgery. CT brain was neg, and her headache/facial pain subsided on day of dc. She agreed to f/u with her ENT back in [place], was prescribed augmentin in addition to doxy to cover sinusitis. Discharge Medications Continued Medications: Montelukast Sodium* (Singulair*) 10 Mg Tablet 10 MG ORAL DAILY, TAB Trazodone* (Trazodone*) 150 Mg Tablet 50 MG ORAL BEDTIME, TAB Discharge Condition Upon Discharge: stable Discharge Disposition Patient was discharged to home Discharge Diagnoses: (1) Headaches, cluster (2) Hidradenitis suppurativa (3) Perineal abscess TIM RICKS Apr 18, 2017 11:06
[2017-04-18] MEDS ORDERED: AUGMENTIN 875-1 EAC1 ORAL (11:22)
[2017-04-18] MEDS ORDERED: ATIVAN0.5 MG ORAL (11:23)
[2017-04-18] MEDS ORDERED: VIBRAMYCIN100 MG ORAL (11:23)
[2017-04-18] MEDS ORDERED: TRAMADOL HCL50 MG ORAL (11:23)
--- NOTE | 2017-04-19 08:39 | Diagnostic Imaging Report ---
Indication: Head pain Technique: Continuous helical CT scanning of the head was performed utilizing automated exposure control without intravenous contrast material. Axial and coronal reconstructions were obtained. Comparison: None CT dose: Total DLP 1245 mGycm; CTDI vol 70.4 mGy Findings: There is no acute intracranial hemorrhage, mass effect or cortical edema. The ventricles, cisterns and sulci are within normal limits. The posterior fossa and fourth ventricle are unremarkable. Sellar and suprasellar regions are grossly unremarkable. Visualized mastoid air cells and paranasal sinuses are unremarkable. No focal lesions of the bony calvarium or soft tissues of the scalp are seen. Impression: No evidence of acute intracranial hemorrhage, mass effect or cortical edema. MRI may be obtained for more sensitive evaluation as clinically indicated. The CT scanner at [facility] is accredited by the [employer] and the scans are performed using protocols designed to limit radiation exposure to as low as reasonably achievable to attain images of sufficient resolution adequate for diagnostic evaluation.
== END 2017-04-18 12:10 | disposition home or self-care (01) | DRG 572 ==
LOC: EMR 12:57 → EDBEDREQ 14:25 → 3E 14:28 → EDBEDREQ 14:45
DX: L02.214 Cutaneous abscess of groin (principal); G44.029 Chronic cluster headache, not intractable; L73.2 Hidradenitis suppurativa
CPT/HCPCS: 36415; 70450; 80048; 80053; 81003; 81025; 82248; 83605; 85025; 85610; 85730; 87040; 94003; 94150; J2250; J2405; J2765